=== PATIENT | female | born 1935 | race Caucasian/White ===

== ENCOUNTER 2016-06-17 14:00 | Inpatient (IN) | payer MEDICARE ==
--- NOTE | ~2016-06-17 | CT57 ---
[facility] A Service of [facility] RADIOLOGY TEXT RESULTS PATIENT: KEVYN PEREA LOCATION: [facility] : 36 UNIT #: [id number] AGE: [address]: Tello Hebert MD SEX: F ORDER DR: [id number] [facility] [address] [facility]. [place], [place] [address] [id number] MR#: [id number] Acc #: [id number] NAME: KEVYN PEREA. : 1935 SEX: F STUDY DATE/TIME: 06/17/2016 19:19 UNIT: [address] ROOM: [facility] STUDY DESCRIPTION: CT Chest Wo Cont Attending Physician: Tello Hebert M.D. Ordering Physician: Tello Hebert M.D. Primary Care Physician: Tello Hebert M.D. MEDICAL IMAGING REPORT This report is preliminary unless electronic signature is present EXAM CT chest without contrast INDICATION Weakness, fever, shortness of air for the past week. PROCEDURE Unenhanced CT of the chest. COMPARISON None. TECHNIQUE This CT examination was performed with one or more of the following radiation dose reduction techniques: automatic exposure control, adjustment of mA and/or kV according to patient size, and iterative reconstruction. FINDINGS No dense consolidation. 7 mm nodule left lower lobe. Small area of ground-glass opacity in the left lower lobe measuring approximately 7 mm. There is linear scarring or atelectasis in the inferior right upper lobe and right middle lobe. No pleural fluid or pneumothorax. Coronary artery calcification. 8 mm adenoma in the left adrenal gland. Partially included cyst upper pole of the right kidney measures 6.8 cm. No acute findings in the included upper abdomen. No aggressive appearing bone lesion. IMPRESSION 1. No acute findings in the chest. 2. 7 mm nodule left lower lobe and a 7 mm area of ground-glass opacity in [facility] A Service of [facility] RADIOLOGY TEXT RESULTS PATIENT: KEVYN PEREA LOCATION: [facility] : 36 UNIT #: [id number] AGE: [address]: Tello Hebert MD SEX: F ORDER DR: the left lower lobe. Recommend attention on a 3-6 [address] follow up chest [address] based on the patient's risk factors. 3. Coronary artery calcification. Dictated by... Sukhdeep Oliver M.D. THIS IS AN ELECTRONICALLY VERIFIED REPORT Sukhdeep Oliver M.D. at 06/20/2016 7:22 AM SAHARA/vanessa TD: 06/18/2016 14:07 JOB #: [id number] MEDICAL IMAGING REPORT COPY
--- NOTE | ~2016-06-17 | HP ---
Unit #: [id number] #: [id number] Patient: KEVYN PEREA [id number] [address] [place], [place] [address] [id number] MR#: [id number] NAME: KEVYN PEREA ROOM: 321 Age: 80 Sex: F Admission Date: 06/17/2016 : 1935 Attending Physician: Tello Hebert M.D. Primary Care Physician: Tello Hebert M.D. HISTORY AND PHYSICAL HISTORY OF PRESENT ILLNESS The patient is a 80-year-old white female with a history of coronary artery disease, irritable bowel syndrome, tobacco use, hyperlipidemia, hormone replacement therapy, hypertension, gastritis, C difficile colitis in the past, previous cholecystectomy, became acutely ill three days ago with myalgias, fever, cough, congestion. She was seen in the office also complaining of anorexia and diarrhea. Flu swab was negative. Chest x-ray was negative. Labs were sent and were essentially normal. She was asked to be admitted yesterday because of clinical dehydration and hypoxemia with room air O2 saturations 86% to 87% but she refused. She was sent home oxygen, started on steroids p.o., started on p.o. Levaquin. The family called today and stated that she was worse and she is directly admitted for further evaluation and therapy. The patient denies any abdominal pain. She has been afebrile here. Her white count is normal although she has acute kidney injury that was not present yesterday but shows up on today's labs. Her daughter is at the bedside during the history and physical examination. She does have some cough and congestion but really is producing no phlegm. She has had no ill contact. Has not had any nausea, vomiting or abdominal pain. PAST MEDICAL HISTORY 1. Osteopenia. 2. Coronary artery disease. 3. Hypertension. 4. Hyperlipidemia. 5. Tobacco use. 6. Irritable bowel syndrome. 7. History of C difficile. 8. Gastroesophageal reflux disease. 9. Hormone replacement therapy. PAST SURGICAL HISTORY 1. Cholecystectomy. 2. Angioplasty. HOME MEDICATIONS 1. Medrol Dosepak. 2. Levaquin. 3. Amlodipine 10 mg daily. 4. Lisinopril 40 mg daily. 5. Aspirin 81 mg daily. 6. Prempro one p.o. daily. 7. Metoprolol ER 50 mg daily. Unit #: [id number] #: [id number] Patient: KEVYN PEREA 8. Isosorbide mononitrate 60 mg daily. 9. Plavix 75 mg daily. 10. Lipitor 40 mg daily. 11. Protonix 40 mg daily. 12. Nitrostat p.r.n. ALLERGIES 1. Codeine. 2. Penicillin. SOCIAL HISTORY . Smokes one pack of cigarettes daily. Rare alcohol use. No street drug use. FAMILY HISTORY Noncontributory. PHYSICAL EXAMINATION VITAL SIGNS: Temperature 98.3, pulse 67, respirations 18, blood pressure 96/57, O2 saturation 92%. GENERAL: She is awake, alert, oriented x3. No acute distress. HEENT: Unremarkable. NECK: Supple without JVD, bruits, adenopathy, or thyromegaly. LUNGS: A few expiratory wheezes and rhonchi but no focal findings. HEART: Regular rate and rhythm without murmurs, rubs, or gallops. ABDOMEN: Soft, nondistended, nontender with positive bowel sounds and no hepatosplenomegaly. EXTREMITIES: No clubbing, cyanosis, or edema. GENITOURINARY: Deferred. RECTAL: Deferred. NEUROLOGIC: Grossly intact. DIAGNOSTIC STUDIES LABORATORY: CBC completely within normal limits. No differential done. CMP within normal limits except for a sodium of 129 and random blood sugar 116, BUN 32, creatinine 1.5, GFR 35.6, calcium 8.1, albumin 3.4, magnesium 1.7. ABGs on room air showed a pH 7.372, PCO2 of 40.6 and a paO2 of 54.4 with an O2 saturation of 86.8. IMPRESSION 1. Fever of unknown origin. 2. Anorexia. 3. Diarrhea. 4. Hypoxemia. 5. Acute kidney injury. 6. Osteopenia. 7. Coronary artery disease. 8. Hypertension. 9. Hyperlipidemia. 10. Tobacco use. 11. History of Clostridium difficile colitis. 12. History of diverticulosis. 13. History of gastroesophageal reflux disease. 14. Status post cholecystectomy. 15. Status post angioplasty. PLAN 1. Hold home medications. Unit #: [id number] #: [id number] Patient: KEVYN PEREA 2. Hydrate with IV fluids D5 normal saline 150 mL per hour. 3. O2 at 2 liters nasal cannula. 4. DuoNeb, IV Solu-Medrol, IV Levaquin. 5. Lovenox for DVT prophylaxis. 6. Will switch the Protonix to Pepcid and hold all other home medications. 7. Stool for C difficile toxin. 8. Repeat flu swab. 9. CT scan of the chest, abdomen and pelvis without dye. 10. Check lactic acid level. 11. Further evaluation pending results of the above. Dictated by Tello Hebert M.D. WILLIAM/meghan TD: 06/17/2016 22:25 JOB #: [id number] HISTORY AND PHYSICAL X Tello Hebert MD HISTORY AND PHYSICAL
--- NOTE | ~2016-06-17 | CT4 ---
[facility] A Service of [facility] RADIOLOGY TEXT RESULTS PATIENT: KEVYN PEREA LOCATION: [facility] - : 36 UNIT #: [id number] AGE: [address]: Tello Hebert MD SEX: F ORDER DR: [id number] [facility] [address] [facility]. [place], [place] [address] [id number] I MR#: [id number] #: [id number] NAME: KEVYN PEREA. : 1935 SEX: F STUDY DATE/TIME: 06/17/2016 19:19 UNIT: A [facility] ROOM: [facility] STUDY DESCRIPTION: CT Abd and Pelv Wo Cont Attending Physician: Tello Hebert M.D. Ordering Physician: Tello Hebert M.D. Primary Care Physician: Tello Hebert M.D. MEDICAL IMAGING REPORT This report is preliminary unless electronic signature is present EXAM CT abdomen and pelvis without contrast INDICATION Nausea, vomiting, diarrhea, weakness, fever, shortness of air for the past week. PROCEDURE Unenhanced CT of the abdomen and pelvis. COMPARISON 04/25/2013. TECHNIQUE This CT examination was performed with one or more of the following radiation dose reduction techniques: automatic exposure control, adjustment of mA and/or kV according to patient size, and iterative reconstruction. FINDINGS Refer to the separately dictated chest CT for thoracic findings. ABDOMEN WITHOUT CONTRAST. The liver, spleen, pancreas unremarkable. Previous cholecystectomy. There is a 1.2 cm left adrenal adenoma. There is a dominant cyst in the upper pole of the right kidney with a parapelvic component. It measures up to 7.3 cm. There are a few left renal cysts. High attenuating lesion posterior left mid kidney measures 5 mm. It is minimally increased from 2013, most in keeping with a benign proteinaceous or hemorrhagic cyst. Bowel loops nondilated. Sigmoid diverticula without active complication. Moderate to moderately severe atherosclerotic calcification abdominal aorta. PELVIS WITHOUT CONTRAST: No pelvic mass or fluid. No radiodense bladder [facility] A Service of [facility] RADIOLOGY TEXT RESULTS PATIENT: KEVYN PEREA LOCATION: [facility] 321-01 : 36 UNIT #: [id number] AGE: [address]: Tello Hebert MD SEX: F ORDER DR: calculus. No aggressive appearing bone lesion. Degenerative change in the lower lumbar spine. IMPRESSION 1. No clearly acute finding in the abdomen or pelvis. 2. Uncomplicated sigmoid diverticulosis. 3. Other incidental findings are detailed above. Dictated by... Sukhdeep Oliver M.D. THIS IS AN ELECTRONICALLY VERIFIED REPORT Sukhdeep Oliver M.D. at 06/20/2016 7:22 AM SAHARA/vanessa TD: 06/18/2016 14:42 JOB #: [id number] MEDICAL IMAGING REPORT COPY
--- NOTE | ~2016-06-17 | EKG ---
PATIENT: KEVYN PEREA UNIT #: [id number] Ventricular Rate: 88 BPM Atrial Rate: 88 BPM P-R Interval: 156 ms QRS Duration: 98 ms Q-T Interval: 372 ms QTC Calculation(Bezet): 450 ms P [place]: 70 degrees Calculated R [place]: 65 degrees Calculated T [place]: 65 degrees Diagnosis Line: Sinus rhythm with Premature supraventricular Diagnosis Line: complexes Diagnosis Line: Nonspecific ST abnormality Diagnosis Line: Abnormal ECG Diagnosis Line: When compared with ECG of 11-NOV-2009 06:27, Diagnosis Line: No significant change was found Diagnosis Line: Confirmed by ANAHI ALTAMIRANO MD ([id number]) on Diagnosis Line: 06/20/2016 8:02:23 AM INTERPRETING MD: ADARSH RICHMOND
--- NOTE | ~2016-06-17 | EKG ---
PATIENT: KEVYN PEREA UNIT #: [id number] Ventricular Rate: 59 BPM Atrial Rate: 59 BPM P-R Interval: 150 ms QRS Duration: 84 ms Q-T Interval: 460 ms QTC Calculation(Bezet): 455 ms P [place]: 79 degrees Calculated R [place]: 80 degrees Calculated T [place]: 78 degrees Diagnosis Line: Sinus bradycardia with sinus arrhythmia Diagnosis Line: Abnormal ECG Diagnosis Line: When compared with ECG of 19-JUN-2016 16:03, Diagnosis Line: Premature supraventricular complexes are no longer Diagnosis Line: Present Diagnosis Line: Vent. rate has decreased BY 29 BPM Diagnosis Line: Nonspecific T wave abnormality no longer evident Diagnosis Line: in Inferior leads Diagnosis Line: Nonspecific T wave abnormality no longer evident Diagnosis Line: in Anterior leads Diagnosis Line: Confirmed by KEE RICE MD ([id number]) on 06/24/2016 Diagnosis Line: 7:33:58 AM INTERPRETING MD: DWAYNE RICHMOND
--- NOTE | ~2016-06-17 | CO ---
Unit #: [id number] #: [id number] Patient: KEVYN PEREA [id number] [address] [place], [place] [address] [id number] I MR#: [id number] NAME: KEVYN PEREA. ROOM: 321 Age: 80 Sex: F Admission Date: 06/17/2016 : 1935 Attending Physician: Tello Hebert M.D. Primary Care Physician: Tello Hebert M.D. Consultation Date: 06/19/2016 CONSULTATION REPORT REASON FOR CONSULTATION Nonsustained ventricular tachycardia. HISTORY OF PRESENT ILLNESS This is a 80-year-old white female, who was sent from the office after being treated as an outpatient for upper respiratory symptoms and she persisted on having fever, chills, increased productive cough, congestion, had some nausea and diarrhea, abdominal pain, and decreased appetite, and dehydration. In Dr. Hebert's office, her O2 saturation level was 86%. She was convinced to come to the hospital for further evaluation. In Dr. Hebert's office, she was negative for the flu; however, here at [facility], she was positive for influenza A. CT of abdomen and pelvis did not show anything acute. Her CT of her chest did show a 7 mm nodule in the left lower lung and ground-glass opacity in the left lower lung. Her EKG is pending. Her telemetry shows normal sinus rhythm with PACs and she has had several runs of nonsustained ventricular tachycardia with the longest being a 13-beat run this morning. Magnesium and potassium has been low and she is under the K and mag protocol. Cardiology has been consulted to assist with evaluation and management. On interview with the patient, she denies any chest pain; pain in her neck, bilateral jaws, shoulders, arms, or elbow. She denies any dizziness, presyncope, or syncope. She denies any palpitations, and no increased lower extremity edema. PAST MEDICAL HISTORY 1. Coronary artery disease. The patient reports she had angioplasty years ago. 2. Last cardiac cath in [address] Srinivasan, normal LVEF, 20% stenosis in the left main, 50% to 60% stenosis in the ostial LAD, 30% stenosis in the left circumflex, 70% stenosis in the distal RCA. 3. In November 2009, nuclear Cardiolite stress test probably normal, mild anteroseptal and apical wall perfusion and abnormal probable tissue attenuation, did not appear to be infarct or ischemia with LVEF of 63%. 4. Hypertension. 5. Hyperlipidemia. 6. Irritable bowel syndrome. 7. History of C. difficile colitis. 8. Gastroesophageal reflux disease. 9. Nicotine abuse. PAST SURGICAL HISTORY 1. Cholecystectomy. 2. Cardiac angioplasty years ago. Unit #: [id number] #: [id number] Patient: KEVYN PEREA HOME MEDICATIONS Probiotic 250 mg p.o. daily, Protonix 40 mg p.o. daily, lisinopril 40 mg p.o. daily, Norvasc 2.5 mg p.o. daily, Bentyl 20 mg p.o. every 6 hours, metronidazole 500 mg p.o. t.i.d., vancomycin 250 mg p.o. every 6 hours prescription, Imdur ER 60 mg p.o. daily, Plavix 75 mg p.o. daily, Lipitor 20 mg p.o. daily, Toprol-XL 50 mg p.o. daily, Prempro 0.3 mg p.o. daily. ALLERGIES Penicillin, morphine. SOCIAL HISTORY The patient lives in her own home. She is fairly active. She still takes care of her home and drives. She continues to smoke a pack a day. She has been smoking most of her adult life. No alcohol or illicit drug abuse. FAMILY HISTORY Her mother lived to be 100. Her father had some kind of heart problems, who at older age. She has an elder brother who does have permanent pacemaker. REVIEW OF SYSTEMS See details in HPI. PHYSICAL EXAMINATION GENERAL: Ms. Perea is a 80-year-old white female, in no acute respiratory distress. She is awake, alert, and oriented. VITAL SIGNS: Blood pressure is 154/88, heart rate is 76, respirations 18, temperature 97.4, O2 saturations 95% on room air. NECK: Trachea midline. No thyromegaly. Normal carotid upstrokes. No jugular venous distention. HEART: S1, S2. Regular rate and rhythm. Soft systolic murmur at the left sternal border. LUNGS: Diminished bilateral scattered wheezes especially in the right. ABDOMEN: Soft, nontender. Positive bowel sounds present. EXTREMITIES: Pedal pulses are palpable. Trace pedal edema. DIAGNOSTIC DATA LABORATORY RESULTS: On admission, ABGs; pH is 7.72, pCO2 of 40.6, PO2 of 54.4, O2 sats 86.1. Glucose is 195, BUN 18, creatinine 0.8, eGFR is above 60. Sodium 139, potassium is 3.0, chloride 110 CO2 of 23, calcium is 8.1, magnesium is 1.6, total protein 6.6, albumin 3.4, bilirubin total 1.1. AST 22, ALT 16, alkaline phosphatase is 67. Lactic acid 0.8. WBCs are 10.4, hemoglobin 13.7, hematocrit 39.5, and platelets 230. Positive influenza A. Urinalysis show 0.2 urobilinogen. Cardiac enzymes; CK total 54, troponin is less than 0.03. IMAGING STUDIES: CT of the chest without contrast showed nothing acute; however, 7 mm nodule in the left lower lobe and a 7 mm area of ground-glass opacity in the left lower lobe. CT of the abdomen and pelvis nothing acute, diverticulosis. CARDIOVASCULAR STUDIES: EKG is pending. Telemetry shows normal sinus rhythm with intraventricular conduction delay. Frequent premature atrial contractions. Runs of nonsustained ventricular tachycardia with the longest being 13 beats. Unit #: [id number] #: [id number] Patient: KEVYN PEREA IMPRESSION 1. Fever, chills, influenza A. 2. Acute hypoxic respiratory failure. 3. Abdominal pain, diarrhea, nausea. 4. Dehydration. 5. Nonsustained ventricular tachycardia. 6. Hypokalemia. 7. Hypomagnesemia. 8. History of coronary artery disease, previous angioplasty, last cath in 2008, nonobstructive coronary artery disease. 9. Hypertension. 10. Hyperlipidemia. 11. Active nicotine abuse. PLAN 1. Cardiology consult to assist with evaluation and management and management of nonsustained ventricular tachycardia, likely could be from the magnesium and potassium depletion. We will supplement and monitor closely. She was having several runs of nonsustained ventricular tachycardia. It has been some time since she saw Dr. Comer, it has been over two years. I will do a 2D echo to evaluate LV function and valves. 2. Obtain a TSH and evaluate. 3. Continue on aspirin 81 mg daily. The patient is on Toprol-XL. We will evaluate if can increase that dose. 4. The patient on exam has no signs or symptoms of acute congestive heart failure or unstable angina. Cardiac enzymes are negative. EKG is pending. 5. Continue the patient along with the Plavix and Imdur. 6. Further recommendations pending per Dr. Grant. Thank you very much for allowing us to assist in care. Dictated by... Mica Aly A.P.R.N. for Andrei Grant M.D. LONNY/zay TD: 06/19/2016 18:28 JOB #: [id number] CONSULTATION REPORT X Mica Aly ODD SHOE EXAMINER X CONSULTATION REPORT
--- NOTE | ~2016-06-17 | DS ---
Unit #: [id number] #: [id number] Patient: KEVYN PEREA [id number] [address] [address] [id number] I MR#: [id number] NAME: KEVYN PEREA. ROOM: [facility] Age: 80 Sex: F Admission Date: 06/17/2016 : 1935 Discharge Date: 06/22/2016 Attending Physician: Tello Hebert M.D. Primary Care Physician: Tello Hebert M.D. DISCHARGE SUMMARY PRINCIPAL DISCHARGE DIAGNOSES 1. Acute influenza A. 2. Hypoxemia. 3. Acute kidney injury. 4. Nonsustained ventricular tachycardia. 5. Paroxysmal supraventricular tachycardia. 6. Single-vessel coronary artery disease with a 30% to 40% ostial left anterior descending lesion. 7. Normal left ventricular ejection fraction. 8. Hypertension. 9. Hyperlipidemia. 10. Osteopenia. 11. Tobacco use. 12. Gastroesophageal reflux disease. 13. Status post cholecystectomy. 14. Status post angioplasty. 15. Hyponatremia. 16. Left lower lobe pulmonary nodule. CONSULTANTS Dr. Grant. PROCEDURES Cardiac cath on 06/21/2016. REASON FOR HOSPITALIZATION The patient is a 80-year-old white female with a history of coronary artery disease, irritable bowel syndrome, tobacco use, hyperlipidemia, on replacement therapy, hypertension, gastritis, C difficile colitis, prior cholecystectomy, angioplasty, presented to the office with 3 days of myalgia, fever, cough, congestion, anorexia, diarrhea in the office. The flu swab was negative. Chest x-ray was negative. Labs were sent and were essentially unremarkable. At that time, her room air O2 saturation was 86% to 87%, but she refused admission. Home oxygen was arranged and she was started on p.r.n. steroids and p.o. Levaquin. The following day, the family called and stated that she was worse and she was directly admitted and she agreed then for further evaluation and therapy. On admission, she was afebrile, pulse is 67, respirations 18, O2 saturation was 92%, blood pressure 96/57. CBC was normal. CMP was normal except for sodium of 129, BUN of 32, creatinine of 1.5 and GFR of 35.6. ABG showed a pH of 7.372, pCO2 of 40, and PaO2 of 54 with an O2 saturation of 86.8%. HOSPITAL COURSE Unit #: [id number] #: [id number] Patient: KEVYN PEREA The patient was admitted and she was placed on IV fluids. Her medications from home as far as her blood pressure medications and cholesterol medicine were held, although inadvertently later on during this admission, we found out that she had them in the room and was taking the whole time and in any case, she was placed on supplemental oxygen, started on IV fluids with normal saline. For acute kidney injury and hyponatremia, she was started on DuoNebs, IV Levaquin, IV Solu-Medrol, Lovenox for DVT prophylaxis. Stool for C difficile toxin was ordered, but never sent. Repeat flu swab was ordered. CT scan of the chest, abdomen, and pelvis was ordered as well as a lactic acid level. During hospital course, the patient rapidly improved. Her O2 sats were rapidly improved. A repeat flu swab done while she was here was positive for influenza A. She was immediately started on Tamiflu. Lactic acid was normal. Urinalysis was checked and within normal limits. Cardiac enzymes were normal. The patient developed ventricular tachycardia and some SVT. She was seen by Cardiology. Potassium was found to be low and replaced. Magnesium was borderline low and replaced as well per protocol. TSH was checked and was low at 0.21. CT scan of the chest without contrast showed no active disease, although there was a 7 mm nodule in left lower lobe and another 7 mm area of ground glass opacity within the left lower lobe. Recommended 3 to 6 month followup. There was also noted coronary arterial calcifications. The patient is aware of these findings. CT scan of abdomen and pelvis was obtained as well and showed no acute disease. There was some uncomplicated sigmoid diverticulosis. The patient continued to improve. She was started on amiodarone. Her metoprolol was increased. Free T4 and T3 were checked. T4 was well within normal range at 1.45, free T3 was slightly low at 2.3, and needs to be followed up through the office. She underwent cardiac cath on the . LV was normal, left main, left circ, RCA were normal, LAD had 30% to 40% ostial lesion. Cardiology recommended medical therapy. Pradaxa was started and okayed by her insurance with a fairly low cost, I think, of $12. Cardiology signed off this morning. She is being discharged home. She is to see me in 1 week. She is on a healthy heart diet. She is to follow up with Cardiology in [address] Lynn. DISCHARGE MEDICATIONS Her current medications are Tamiflu 75 mg 1 p.o. b.i.d. for one more day, flecainide 100 mg p.o. q.12 hours, Lopressor tartrate 50 mg p.o. q.12 hours, hydrochlorothiazide 25 mg p.o. daily, Robitussin 10 mL p.o. q.6 hours p.r.n. for cough, Lipitor 20 mg p.o. daily, Prempro 0.3 mg p.o. daily, lisinopril 20 mg p.o. daily, Pepcid 40 mg p.o. daily, aspirin 81 mg p.o. daily, KCl 40 mEq p.o. daily, Tylenol 650 p.o. q.6 hours p.r.n. for pain, Pradaxa 150 mg p.o. b.i.d., Medrol Dosepak use as directed. DISCHARGE INSTRUCTIONS When she follows in the office, she will need to have repeat BMP and magnesium especially because the addition of the hydrochlorothiazide and her predisposition for PSVT and V-tac. She is encouraged to discontinue her tobacco use. Dictated by... Cherelle Dave/zay TD: 06/23/2016 05:10 Unit #: [id number] #: [id number] Patient: KEVYN PEREA JOB #: [id number] DISCHARGE SUMMARY Page 1 of 1 X Tello Hebert MD X DISCHARGE SUMMARY
[~2016-06-17 14:00] MED LIST: ASPIRIN81 M1 PO; B COMPLEX1 CA1; BENTYL20 MG PO; CALTRATE 600+D; CHO; CIPRO PO; DIGESTIVE PROB250 MG PO; FAMOTIDINE PO; GLUCOSAMINE; IMDUR PO; LIPITOR PO; LISINOPRIL PO; LOMOTIL WHITE2.5 MG PO; METRONIDAZOLE PO; NAPROSYN250 M1; NORVASC2.5 MG PO; PLAVIX PO; PREMPRO PO; PROTONIX PO; TOPROL XL PO; VANCOMYCIN HCL250 MG PO
[2016-06-17 14:04] LABS: HEMOGLOBIN 14.9 gm/dL (12.0-16.0); MEAN CELL VOLUME 86.8 FL (83-96); MEAN CORPUSCULAR HGB CONC 34.6 g/dL (30-36); MEAN PLATELET VOLUME 7.4 FL (6.5-11.5); RED BLOOD COUNT 4.96 X10e (3.90-5.30); RED CELL DISTRIBUTION WIDTH 13.5 % (11.0-15.5); WHITE BLOOD COUNT 6.3 X10e3 (4.0-10.5)
[2016-06-17 14:45] LABS: ALBUMIN SERUM 3.4 g/dL (3.5-5.0); BILIRUBIN,TOTAL 1.1 mg/dL (0.2-2.0); BUN/CREATININE RATIO 21.33; CALCIUM SERUM 8.1 mg/dL (8.4-10.2); CREATININE SERUM 1.5 mg/dL (0.6-1.4); GLOM FILT RATE Estimated 35.6 mL/min (>60); MAGNESIUM 1.7 mg/dL (1.6-3.0); POTASSIUM 3.7 mmol/L (3.5-5.1); PROTEIN TOTAL SERUM 6.6 g/dL (6.0-8.3)
[2016-06-17 15:08] LABS: ARTERIAL BLD GAS O2 SATURATION 86.8 % (90.0-100.0); ARTERIAL BLOOD GAS HCO3 23.6 mmol/L; ARTERIAL BLOOD GAS PCO2 40.6 mmHg (35.0-45.0); ARTERIAL BLOOD GAS pH 7.372 (7.350-7.450)
[2016-06-17 15:09] LABS: ARTERIAL BLOOD GAS ALLEN TEST NORMAL; ARTERIAL BLOOD GAS ART SITE RIGHT RADIAL; ARTERIAL BLOOD GAS PO2 54.4 mmHg (80.0-100); ARTERIAL DRAW? YES
[2016-06-18 06:23] LABS: HEMATOCRIT 41.4 % (35.0-45.0); HEMOGLOBIN 14.2 gm/dL (12.0-16.0); MEAN CORPUSCULAR HEMOGLOBIN 29.9 PG (28-34); MEAN CORPUSCULAR HGB CONC 34.4 g/dL (30-36); MEAN PLATELET VOLUME 7.9 FL (6.5-11.5); RED BLOOD COUNT 4.75 X10e (3.90-5.30); RED CELL DISTRIBUTION WIDTH 13.6 % (11.0-15.5); WHITE BLOOD COUNT 3.7 X10e3 (4.0-10.5)
[2016-06-18 07:04] LABS: BUN/CREATININE RATIO 29.16; CALCIUM SERUM 8.4 mg/dL (8.4-10.2); CREATININE SERUM 1.2 mg/dL (0.6-1.4); GLOM FILT RATE Estimated 46.1 mL/min (>60); MAGNESIUM 1.8 mg/dL (1.6-3.0); POTASSIUM 3.5 mmol/L (3.5-5.1)
[2016-06-18 08:44] LABS: URINE SOURCE CLEAN CATCH
[2016-06-18 09:20] LABS: URINE APPEARANCE CLEAR; URINE BILIRUBIN NEG (NEG); URINE BLOOD NEG (NEG); URINE COLOR YELLOW; URINE GLUCOSE NEG (NEG); URINE KETONE NEG (NEG); URINE LEUKOCYTE ESTERASE NEG (NEG); URINE NITRATE NEG (NEG); URINE PROTEIN NEG (NEG); URINE SPECIFIC GRAVITY 1.024 (1.003-1.035); URINE UROBILINOGEN 0.2 MG/DL (NEG)
[2016-06-18 10:05] LABS: INFLUENZA A POS (NEG); INFLUENZA B NEG (NEG)
[2016-06-18 20:25] LABS: CK TOTAL 54 IU/L (26-140)
[2016-06-19 06:02] LABS: HEMATOCRIT 39.5 % (35.0-45.0); HEMOGLOBIN 13.7 gm/dL (12.0-16.0); MEAN CORPUSCULAR HEMOGLOBIN 29.7 PG (28-34); MEAN CORPUSCULAR HGB CONC 34.6 g/dL (30-36); MEAN PLATELET VOLUME 7.6 FL (6.5-11.5); RED BLOOD COUNT 4.59 X10e (3.90-5.30); RED CELL DISTRIBUTION WIDTH 13.5 % (11.0-15.5); WHITE BLOOD COUNT 10.4 X10e3 (4.0-10.5)
[2016-06-19 06:59] LABS: BLOOD UREA NITROGEN 18 mg/dL (9-23); CALCIUM SERUM 8.1 mg/dL (8.4-10.2); CARBON DIOXIDE 23 mmol/L (22-31); CHLORIDE 110 mmol/L (100-111); CREATININE SERUM 0.9 mg/dL (0.6-1.4); GLOM FILT RATE Estimated ABOVE60 mL/min (>60); GLUCOSE FASTING 195 mg/dL (70-110); SODIUM 139 mmol/L (135-145)
[2016-06-19 22:50] LABS: MAGNESIUM 2.3 mg/dL (1.6-3.0); POTASSIUM 3.4 mmol/L (3.5-5.1)
[2016-06-20 08:25] LABS: HEMATOCRIT 41.8 % (35.0-45.0); HEMOGLOBIN 14.1 gm/dL (12.0-16.0); MEAN CELL VOLUME 86.7 FL (83-96); MEAN CORPUSCULAR HEMOGLOBIN 29.3 PG (28-34); MEAN CORPUSCULAR HGB CONC 33.8 g/dL (30-36); MEAN PLATELET VOLUME 8.1 FL (6.5-11.5); RED BLOOD COUNT 4.82 X10e (3.90-5.30); RED CELL DISTRIBUTION WIDTH 13.8 % (11.0-15.5); WHITE BLOOD COUNT 8.4 X10e3 (4.0-10.5)
[2016-06-20 09:01] LABS: BLOOD UREA NITROGEN 14 mg/dL (9-23); CALCIUM SERUM 8.3 mg/dL (8.4-10.2); CARBON DIOXIDE 22 mmol/L (22-31); CHLORIDE 110 mmol/L (100-111); CREATININE SERUM 0.8 mg/dL (0.6-1.4); GLOM FILT RATE Estimated ABOVE60 mL/min (>60); GLUCOSE FASTING 141 mg/dL (70-110); POTASSIUM 3.7 mmol/L (3.5-5.1); SODIUM 141 mmol/L (135-145)
[2016-06-20 09:12] LABS: CHOLESTEROL 90 mg/dL (0-200); HDL CHOLESTEROL 35 mg/dL (35-95); LDL CHOLESTEROL 36 mg/dL (-130); LDL/HDL RATIO 1 RATIO (0-4); TRIGLYCERIDES 96 mg/dL (10-160)
[2016-06-20 09:13] LABS: FREE T3 2.3 pg/mL (2.5-3.9)
[2016-06-20 09:15] LABS: FREE THYROXIN (T4) 1.45 ng/dL (0.58-1.64)
[2016-06-21 07:02] LABS: HEMATOCRIT 41.6 % (35.0-45.0); HEMOGLOBIN 14.6 gm/dL (12.0-16.0); MEAN CELL VOLUME 85.6 FL (83-96); MEAN CORPUSCULAR HGB CONC 35.1 g/dL (30-36); MEAN PLATELET VOLUME 7.7 FL (6.5-11.5); RED BLOOD COUNT 4.85 X10e (3.90-5.30); RED CELL DISTRIBUTION WIDTH 13.9 % (11.0-15.5); WHITE BLOOD COUNT 9.2 X10e3 (4.0-10.5)
[2016-06-21 07:10] LABS: PARTIAL THROMBOPLASTIN TIME 24.5 SECONDS (23.5-31.3); PROTHROMBIN TIME (PATIENT) 10.7 SECONDS (9.6-11.5)
[2016-06-21 07:33] LABS: BLOOD UREA NITROGEN 18 mg/dL (9-23); BUN/CREATININE RATIO 25.71; CALCIUM SERUM 8.8 mg/dL (8.4-10.2); CARBON DIOXIDE 29 mmol/L (22-31); CHLORIDE 100 mmol/L (100-111); CREATININE SERUM 0.7 mg/dL (0.6-1.4); GLOM FILT RATE Estimated ABOVE60 mL/min (>60); GLUCOSE FASTING 107 mg/dL (70-110); POTASSIUM 4.1 mmol/L (3.5-5.1); SODIUM 136 mmol/L (135-145)
[2016-06-22] MEDS ORDERED: TAMIFLU75 M1 PO (14:09)
[2016-06-22] MEDS ORDERED: HCTZ PO (14:11)
[2016-06-22] MEDS ORDERED: TUSSIN100 MG/51 PO (14:14)
[2016-06-22] MEDS ORDERED: FAMOTIDINE PO (14:15)
[2016-06-22] MEDS ORDERED: ASPIRIN81 M2 PO (14:15)
[2016-06-22] MEDS ORDERED: KCL PO (14:16)
[2016-06-22] MEDS ORDERED: ACETAMINOPHEN PO (14:17)
[2016-06-22] MEDS ORDERED: MEDROL DOSEPAK4 MG PO (14:18)
[2016-06-22] MEDS ORDERED: PRADAXA150 MG PO (14:18)
== END 2016-06-22 14:50 | disposition home or self-care (01) | DRG 189 ==
LOC: C3A PCU 14:00
PROVIDERS: Internal Medicine; Internal Medicine Cardiovascular Disease; Nurse Practitioner
PROC: B24BZZZ Ultrasonography of Heart with Aorta (ICD-10-PCS; 2016-06-20)
PROC: 4A023N7 Measurement of Cardiac Sampling and Pressure, Left Heart, Percutaneous Approach (ICD-10-PCS; principal; 2016-06-21)
PROC: B211YZZ Fluoroscopy of Multiple Coronary Arteries using Other Contrast (ICD-10-PCS; 2016-06-21)
PROC: B215YZZ Fluoroscopy of Left Heart using Other Contrast (ICD-10-PCS; 2016-06-21)
DX: J96.01 Acute respiratory failure with hypoxia (principal); N17.9 Acute kidney failure, unspecified; I47.1 Supraventricular tachycardia; E87.1 Hypo-osmolality and hyponatremia; E86.0 Dehydration; R63.0 Anorexia; J44.1 Chronic obstructive pulmonary disease with (acute) exacerbation; J10.89 Influenza due to other identified influenza virus with other manifestations; I25.10 Atherosclerotic heart disease of native coronary artery without angina pectoris; Z98.61 Coronary angioplasty status; I10 Essential (primary) hypertension; F17.210 Nicotine dependence, cigarettes, uncomplicated; E78.5 Hyperlipidemia, unspecified; M85.80 Other specified disorders of bone density and structure, unspecified site; K21.9 Gastro-esophageal reflux disease without esophagitis; R91.1 Solitary pulmonary nodule; K58.0 Irritable bowel syndrome with diarrhea; E87.6 Hypokalemia; E83.42 Hypomagnesemia; Z68.27 Body mass index [BMI] 27.0-27.9, adult; R11.0 Nausea; I25.2 Old myocardial infarction; Z79.890 Hormone replacement therapy; Z88.5 Allergy status to narcotic agent; Z88.0 Allergy status to penicillin
CPT/HCPCS: 36600; 71250; 74176; 80048; 80053; 80061; 81003; 82550; 82803; 83605; 83735; 84132; 84439; 84443; 84481; 84484; 85027; 85610; 85730; 87633; 87804; 93005; 93306; 94640; 94760; C1769; C1887; C1894; J0282; J1644; J1650; J1956; J2250; J2405; J2920; J2930; J3010; J3475

== ENCOUNTER 2016-08-15 19:58 | Emergency (ER) | payer MEDICARE ==
--- NOTE | ~2016-08-15 | CR282 ---
[facility]. [facility] A Service of [facility] & [facility] RADIOLOGY TEXT RESULTS PATIENT: KEVYN PEREA LOCATION: SED : 36 UNIT #: [id number] AGE: [address]: LOBO QUINTANILLA SEX: F ORDER DR: [id number] [place] [address] [id number] E MR#: [id number] Acc #: [id number] NAME: KEVYN PEREA. : 1935 SEX: F STUDY DATE/TIME: 08/15/2016 20:25 UNIT: SED ROOM: STUDY DESCRIPTION: CR Wrist Min 3 View Rt Attending Physician: Lobo Quintanilla Aprn Ordering Physician: Elvis Clement M.D. Primary Care Physician: Tello Hebert M.D. MEDICAL IMAGING REPORT This report is preliminary unless electronic signature is present. EXAM Right wrist 3 views INDICATIONS Pain and swelling today after falling. No comparisons. 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 Osteopenia. The carpal alignment is maintained. 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 No acute findings. Dictated by... Dionisio Cunningham M.D. THIS IS AN ELECTRONICALLY VERIFIED REPORT Dionisio Cunningham M.D. at 08/17/2016 7:27 AM BA/servando TD: 08/16/2016 01:27 JOB #: [id number] MEDICAL IMAGING REPORT Page 1 of 1
--- NOTE | ~2016-08-15 | CR142 ---
[facility]. [facility] A Service of [facility] & [facility] RADIOLOGY TEXT RESULTS PATIENT: KEVYN PEREA LOCATION: SED : 36 UNIT #: [id number] AGE: [address]: LOBO QUINTANILLA SEX: F ORDER DR: [id number] [place] [address] [id number] E MR#: [id number] Acc #: [id number] NAME: KEVYN PEREA. : 1935 SEX: F STUDY DATE/TIME: 08/15/2016 20:25 UNIT: SED ROOM: STUDY DESCRIPTION: CR Hand Min 3 Views Rt Attending Physician: Lobo Quintanilla Aprn Ordering Physician: Elvis Clement M.D. Primary Care Physician: Tello Hebert M.D. MEDICAL IMAGING REPORT This report is preliminary unless electronic signature is present. EXAM Right hand 3 views INDICATION Pain and swelling of hand today. No comparisons available. FINDINGS There is degenerative change at the base of the thumb. Degenerative change at multiple IP joints. No evidence for fracture. No dislocation. Osteopenia. IMPRESSION Osteoarthritic degenerative changes. No acute finding. Dictated by... Dionisio Cunningham M.D. THIS IS AN ELECTRONICALLY VERIFIED REPORT Dionisio Cunningham M.D. at 08/17/2016 7:27 AM BA/servando TD: 08/16/2016 01:26 JOB #: [id number] MEDICAL IMAGING REPORT Page 1 of 1
[~2016-08-15 19:58] MED LIST changes: +ACETAMINOPHEN PO; +ASPIRIN81 M2 PO; +HCTZ PO; +KCL PO; +MEDROL DOSEPAK4 MG PO; +PRADAXA150 MG PO; +TAMIFLU75 M1 PO; +TUSSIN100 MG/51 PO
== END 2016-08-15 21:30 | disposition home or self-care (01) ==
LOC: SED 19:58
DX: S63.501A Unspecified sprain of right wrist, initial encounter (principal); I10 Essential (primary) hypertension; F17.210 Nicotine dependence, cigarettes, uncomplicated; K21.9 Gastro-esophageal reflux disease without esophagitis; Z88.0 Allergy status to penicillin; Z88.5 Allergy status to narcotic agent; Z79.899 Other long term (current) drug therapy; W18.30XA Fall on same level, unspecified, initial encounter
CPT/HCPCS: 29260; 73110; 73130; 90471; 90715; 99283

== ENCOUNTER → 2016-11-18 | Outpatient (CLI) | payer MEDICARE ==
--- NOTE | ~2016-11-18 | MY29 ---
[facility] A Service of [facility] & [facility] RADIOLOGY TEXT RESULTS PATIENT: KEVYN PEREA LOCATION: [facility] : 36 UNIT #: [id number] AGE: [address]: Tello Hebert MD SEX: F ORDER DR: [id number] [facility] [address] [place], [place] [address] [id number] O MR#: [id number] Acc #: [id number] NAME: KEVYN PEREA. : 1935 SEX: F STUDY DATE/TIME: 11/18/2016 7:43 UNIT: [facility] ROOM: STUDY DESCRIPTION: MY JESÚS SCREENING W/ CAD BILAT Attending Physician: Tello Hebert M.D. Referring Physician: Tello Hebert M.D. Ordering Physician: Tello Hebert M.D. Primary Care Physician: Tello Hebert M.D. MEDICAL IMAGING REPORT This report is preliminary unless electronic signature is present EXAM Digital screening mammogram, 11/18/2016 HISTORY 80-year-old woman long history of hormone replacement. Annual screening. COMPARISON Mammograms date to 01/10/2006 with most recent 06/23/2015. FINDINGS Digital imaging of each breast was completed utilizing screening protocol. An additional exaggerated craniocaudal view of the left breast is included. Review includes FDA-approved CAD device. Breast parenchyma is fatty replaced. Small subcentimeter circumscribed nodules right subareolar location are stable with benign characteristics. These are noted on all prior exams. A single nodule upper outer posterior third left breast is also confirmed on prior images and stable. There is no interval occurring breast mass. I see no suspicious microcalcifications and no architectural deformity. IMPRESSION Stable benign mammogram. Annual screening recommended. Patients over the age of 40 are entered into a reminder system with target due date for the next mammogram. A result letter will also be sent to the patient. BIRADS: 2 Benign Finding Dictated by... Jasper Guerrero M.D. THIS IS AN ELECTRONICALLY VERIFIED REPORT [facility] A Service of [facility] & [facility] RADIOLOGY TEXT RESULTS PATIENT: KEV[facility] PEREA [id number] UNIT #: [id number] AGE: [address]: Tello Hebert MD SEX: F ORDER DR: Jasper Guerrero M.D. at 11/18/2016 1:44 PM Anamika TD: 11/18/2016 12:37 JOB #: [id number] MEDICAL IMAGING REPORT Page 1 of 1 COPY
--- NOTE | ~2016-11-18 | CT57 ---
[facility] A Service of [facility] & [facility] RADIOLOGY TEXT RESULTS PATIENT: KEVYN PEREA LOCATION: [facility] : 36 UNIT #: [id number] AGE: [address]: Tello Hebert MD SEX: F ORDER DR: [id number] [facility] [address]. [place], [place] [address] [id number] O MR#: [id number] Acc #: [id number] NAME: KEVYN PEREA : 1935 SEX: F STUDY DATE/TIME: 11/18/2016 8:35 UNIT: [facility] ROOM: STUDY DESCRIPTION: CT Chest Wo Cont Attending Physician: Tello Hebert M.D. Referring Physician: Tello Hebert M.D. Ordering Physician: Tello Hebert M.D. Primary Care Physician: Tello Hebert M.D. MEDICAL IMAGING REPORT This report is preliminary unless electronic signature is present EXAM Chest CT, no contrast; 11/18/2016. INDICATIONS 80-year-old female with a history of lung nodule. Follow up. No history of malignancy. TECHNIQUE Noncontrast chest CT was performed and compared with 06/17/2016. This CT exam was performed with one or more of the following radiation dose reduction techniques: automatic exposure control, adjustment of mA and/or kV according to patient size, and iterative reconstruction. FINDINGS CT CHEST: There are emphysematous changes. There is a dominant bleb in the left lower lobe. No effusion. There are bronchiectatic changes in both lower lobes. There is a 7 mm subpleural nodule in the left lower lobe. On today's examination with the benefit of thin cut technique, there is probable faint or developing calcification within the nodule suggestive of a benign process. Tiny 3 mm subpleural micronodule in the left lower lobe unchanged for technical factors. It is visualized on today's study secondary to thin slice technique to a greater extent. There is a 7 mm ground-glass opacity in the superior segment left lower lobe unchanged. There are scattered areas of atelectasis and scarring. There is a ground-glass nodular opacity in the right lower lobe measuring 4 mm, likely also unchanged for technical factors. Nodular densities associated with the major fissure on the right are stable. There is a tiny micronodule in the right upper lobe measuring only about 2 mm. Included thyroid unremarkable. No pericardial effusion. There is no axillary adenopathy. Probable reactive mediastinal nodes. There are coronary artery calcifications. Aorta demonstrates atherosclerotic STS. [facility] A Service of [facility] / [facility] RADIOLOGY TEXT RESULTS PATIENT: KEVYN PEREA LOCATION: [facility] : 36 UNIT #: [id number] AGE: [address]: Tello Hebert MD SEX: F ORDER DR: susanne. The ascending aorta is mildly aneurysmal at 3.9 cm. Included upper abdomen demonstrates a benign left adrenal adenoma. Kidneys demonstrate bilateral renal cysts within the field of view. Tiny nonobstructing stone in the right kidney. Gallbladder not identified and presumably surgically absent. Osseous structures demonstrate no suspicious bone lesion. IMPRESSION 1. 7 mm subpleural nodule in the left lower lobe likely represents a faintly calcified granuloma. Given stability over the past 5 months interval follow up in 6-12 months recommended for reassessment. 2. 7 mm ground-glass opacity in the left lower lobe also stable and can be followed in conjunction with the other 7 mm nodule on the left. 3. No new suspicious pulmonary nodule. Less than 5 mm nodules in the remainder of the lungs as described above can be followed in conjunction with the dominant left-sided nodules. 4. Emphysema. 5. Aneurysmal dilatation of the ascending aorta. 6. Benign left adrenal adenoma. 7. Bilateral renal cysts. Dictated by... Jose Elias Lewis M.D. THIS IS AN ELECTRONICALLY VERIFIED REPORT Jose Elias Lewis M.D. at 11/21/2016 9:08 AM Maribell TD: 11/18/2016 19:13 JOB #: [id number] MEDICAL IMAGING REPORT Page 1 of 1 COPY
== END | disposition home or self-care (01) ==
LOC: CWCC 07:16
DX: Z12.31 Encounter for screening mammogram for malignant neoplasm of breast (principal); R91.1 Solitary pulmonary nodule; R91.8 Other nonspecific abnormal finding of lung field; J43.9 Emphysema, unspecified; D35.02 Benign neoplasm of left adrenal gland; N28.1 Cyst of kidney, acquired
CPT/HCPCS: 71250; G0202